=== PATIENT | male | born 1970 ===

== ENCOUNTER 2017-03-16 09:55 | Outpatient (CLI) | payer OTHER ==
--- NOTE | 2017-03-16 11:50 | Ultrasound Report ---
RIGHT UPPER QUADRANT ABDOMINAL ULTRASOUND: 03/16/17 09:55:00 CLINICAL: Elevated liver function tests. FINDINGS: High-resolution ultrasound demonstrated a normal size liver with normal contour and echogenicity.. Normal hepatic vasculature and inferior vena cava. Normal gallbladder and bile ducts. The gall bladder wall measures 2 mm in thickness. The common bile duct measures 3 mm diameter. The pancreas was well imaged and normal. Normal upper abdominal aorta. The right kidney is normal and measures 10.4 x 5.4 x 5.3cm. No ascites or mass. IMPRESSION: Normal study.
== END 2017-03-16 09:56 | disposition home or self-care (01) ==
LOC: SPVWC 09:55
PROVIDERS: ATTEND Internal Medicine
DX: R79.89 Other specified abnormal findings of blood chemistry (principal)
CPT/HCPCS: 76705